=== PATIENT | male | born 1990 | race African-American/Black ===

== ENCOUNTER 2019-09-18 22:45 | Emergency (ER) | payer OTHER ==
[~2019-09-18] VITALS: Ht 162.6 cm; Wt 86.2 kg
[2019-09-19 01:10] VITALS: BP 104/62; TEMP 99.5
== END 2019-09-19 01:10 | disposition home or self-care (01) ==
LOC: ED 22:45
DX: J40 Bronchitis, not specified as acute or chronic (principal)
CPT/HCPCS: 99283

== ENCOUNTER 2019-10-15 12:47 | Outpatient (CLI) | payer OTHER | END 2019-10-15 19:21 | disposition home or self-care (01) | LOC: RAD 12:47 | DX: Z03.818 Encounter for observation for suspected exposure to other biological agents ruled out (principal) ==

== ENCOUNTER 2020-11-01 11:20 | Outpatient (CLI) | payer OTHER | END 2020-11-01 21:12 | disposition home or self-care (01) | LOC: RAD 11:20 | PROVIDERS: ATTEND Family Medicine | DX: M25.531 Pain in right wrist (principal) ==